=== PATIENT | female | born 1960 | race Caucasian/White ===

== ENCOUNTER 2017-04-16 04:27 | Emergency (ER) | payer SELFPAY ==
[~2017-04-16] VITALS: Ht 175.3 cm; Wt 58.1 kg
--- NOTE | 2017-04-16 04:37 | NUR ---
BB RA FROM HOME; DIZZINESS. PT AOX3 RR EVEN AND UNLABORED. NO SOB NOTED. NAD NOTED. NO NVD AT THIS TIME. PT GOWNED AND PLACED ON MONITOR WAITING FOR MD GOMEZ.
--- NOTE | 2017-04-16 04:40 | NUR ---
DR. CAMERON AT BEDSIDE FOR EVAL.
--- NOTE | 2017-04-16 05:21 | NUR ---
PT TO RADIOLOGY FOR CT.
--- NOTE | 2017-04-16 05:25 | NUR ---
PT RETURNED FROM CT.
[2017-04-16 05:55] LABS: BASOPHILS % (AUTO) 0.2 % (0.0-2.0); EOSINOPHILS # (AUTO) 0.1 /CMM (0.0-0.7); HEMATOCRIT 42 % (33-45); HEMOGLOBIN 13.9 g/dL (11.5-14.8); LYMPHOCYTES # (AUTO) 1.9 /CMM (0.8-4.8); LYMPHOCYTES % (AUTO) 17.1 % (20.0-44.0); MEAN CORPUSCULAR HEMOGLOBIN 30 PG (26.0-33.0); MEAN CORPUSCULAR HGB CONC 33 g/dl (31.0-36.0); MEAN CORPUSCULAR VOLUME 90 fL (82-100); MONOCYTES # (AUTO) 0.5 /CMM (0.1-1.30); NEUTROPHILS # (AUTO) 8.4 /CMM (1.8-8.9); NEUTROPHILS % (AUTO) 76.7 % (43.0-81.0); PLATELET COUNT (AUTO) 222 /CMM (150-450); RDW COEFFICIENT OF VARIATION 14.8 (11.5-15.0); WHITE BLOOD COUNT (AUTO) 10.9 K/uL (4.3-11.0)
[2017-04-16 06:03] LABS: CREATININE 0.7 mg/dL (0.6-1.3); POTASSIUM 3.4 mmol/L (3.5-5.1)
--- NOTE | 2017-04-16 09:07 | NUR ---
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
--- NOTE | 2017-04-16 10:08 | NUR ---
pet leticia pt's son eta 30 minutes
[2017-04-16 10:51] VITALS: BP 115/61
== END 2017-04-16 10:52 | disposition home or self-care (01) ==
LOC: ER 04:31
DX: H81.399 Other peripheral vertigo, unspecified ear (principal); Z88.0 Allergy status to penicillin
CPT/HCPCS: 36415; 70450; 80048; 85025; 96361; 96374; 96375; 99285; A4606; J2060; J2405; J7030; J8597; Z7610

== ENCOUNTER 2018-11-21 12:40 | Emergency (ER) | payer OTHER ==
[~2018-11-21] VITALS: Ht 172.7 cm; Wt 60.8 kg
--- NOTE | 2018-11-21 12:50 | NUR ---
CAME IN FOR COUGH WITH CONGESTION FOR MORE THAN A WEEK, "I FEEL LIKE I CANT BREATH". TO ER BED 9, HOOKED TO MONITOR, CHANGED TO GOWN, PROVIDED W WARM BLANKET, AWAITING MD SCHWARTZ
--- NOTE | 2018-11-21 12:51 | NUR ---
MADI RIVAS AT BEDSIDE
[2018-11-21] MEDS ORDERED: predniSONE 20 MG TABLET ONE (12:58)
[2018-11-21] MEDS ORDERED: predniSONE 20 MG TABLET PO ONE (13:00)
[2018-11-21] MEDS ORDERED: ALBUTEROL FS 2.5 MG/3 ML VIAL.NEB NEB ONE ×2 (13:00→14:00)
[2018-11-21] MEDS ORDERED: IPRATROPIUM NEB FS 0.5 MG/2.5 ML AMPUL.NEB NEB ONE (13:00)
--- NOTE | 2018-11-21 13:00 | NUR ---
RT AT BEDSIDE, STARTED W BREATHING TREATMENT
[2018-11-21] MEDS ORDERED: IPRATROPIUM NEB FS 0.5 MG/2.5 ML AMPUL.NEB ONE (13:02)
[2018-11-21] MEDS ORDERED: ALBUTEROL FS 2.5 MG/3 ML VIAL.NEB ONE ×2 (13:02→13:47)
--- NOTE | 2018-11-21 13:48 | NUR ---
RT AT BEDSIDE, 2ND BREATHING TREATMENT STARTED
--- NOTE | 2018-11-21 14:15 | NUR ---
Patient discharged to home in stable condition. Written and verbal after care instructions given. Patient verbalizes understanding of instruction.
[2018-11-21 14:17] VITALS: BP 129/69
== END 2018-11-21 14:18 | disposition home or self-care (01) ==
LOC: ER 12:41
DX: J20.9 Acute bronchitis, unspecified (principal); R00.0 Tachycardia, unspecified; Z88.0 Allergy status to penicillin
CPT/HCPCS: 71045; 94640 ×2; 99284; J7512

== ENCOUNTER 2019-02-15 19:49 | Inpatient (IN) | payer OTHER ==
[~2019-02-15] VITALS: Ht 175.3 cm; Wt 56.4 kg
--- NOTE | 2019-02-15 20:10 | NUR ---
LYNNETTE FROM HOME. TO ER BED 1. AAOX4. NO RESP DISTRESS, BREATHING EVEN AND UNLABORED. C/O L TEMPORAL HEADACHE AND LUPER EXT AND L LOWER EXT WEAKNESS S/P SYCOPAL EPISODE. PT REPORTS WAKING UP ON THE FLOOR AND ASSUMES SHE HIT HER HEAD. AT BEDSIDE PAT SCHWARTZ
--- NOTE | 2019-02-15 20:18 | NUR ---
CODE STROKE CALLED
[2019-02-15] MEDS ORDERED: CT SWABBABLE VALVE TRANS SET 1 EA INFUS.SET MC ONE (20:21)
[2019-02-15] MEDS ORDERED: IV NS 0.9% 250 ML IV ONE (20:21)
[2019-02-15] MEDS ORDERED: IOHEXOL-350 100 ML VIAL IV ONE (20:21)
--- NOTE | 2019-02-15 20:22 | NUR ---
PT BROUGHT TO CT VIA ACLS PROTOCOL
[2019-02-15 20:25] LABS: BASOPHILS % (AUTO) 0.4 % (0.0-2.0); EOSINOPHILS % (AUTO) 1.5 % (0.0-6.0); HEMATOCRIT 40 % (33-45); HEMOGLOBIN 14.1 g/dL (11.5-14.8); LYMPHOCYTES # (AUTO) 2.9 /CMM (0.8-4.8); LYMPHOCYTES % (AUTO) 41.1 % (20.0-44.0); MEAN CORPUSCULAR HGB CONC 35 g/dl (31.0-36.0); MEAN CORPUSCULAR VOLUME 87 fL (82-100); MONOCYTES # (AUTO) 0.6 /CMM (0.1-1.30); NEUTROPHILS # (AUTO) 3.4 /CMM (1.8-8.9); PLATELET COUNT (AUTO) 335 /CMM (150-450); RED BLOOD CELL COUNT(AUTO) 4.65 MIL/uL (4.0-5.2); WHITE BLOOD COUNT (AUTO) 7.1 K/uL (4.3-11.0)
--- NOTE | 2019-02-15 20:25 | NUR ---
DR. ROBERT ON THE PHONE WITH DR. LION TELE STROKE
[2019-02-15 20:35] LABS: CALCIUM, SERUM 9.2 mg/dL (8.5-10.1); CARBON DIOXIDE 36 mmol/L (21-32); CHLORIDE 97 mmol/L (98-107); CREATININE 0.9 mg/dL (0.6-1.3); GLUCOSE 103 mg/dL (74-106); SODIUM SERUM 138 mmol/L (136-145); UREA NITROGEN, BLOOD 23 mg/dL (7-18)
[2019-02-15 20:47] LABS: ALANINE AMINOTRANSFERASE 25 U/L (12-78); ALBUMIN 3.4 g/dL (3.4-5.0); ALKALINE PHOSPHATASE 80 U/L (46-116); ASPARTATE AMINOTRANSFERASE 28 U/L (15-37); BILIRUBIN,DIRECT 0.1 mg/dL (0.0-0.2); BILIRUBIN,TOTAL 0.3 mg/dL (0.2-1.0); TOTAL PROTEIN, SERUM 7.4 g/dL (6.4-8.2)
--- NOTE | 2019-02-15 20:51 | NUR ---
2019: CODE STROKE ACTIVATED 2021: IV LINE OBTAINED ON R AC 18G. BLOOD DRAWN AND GIVEN TO TECH AT BEDSIDE. 2022: EN ROUTE TO CT ON [place] WITH RN AND ACCOUNTS PAYABLE ACCOUNTANT 2024: CT HEAD W/O CONTRAST 2027: CT W/ CONTRAST 2031: BACK TO UNIT 2033: EKG AT BEDSIDE. 2039: MD AT BEDSIDE
[2019-02-15 21:16] LABS: CHOLESTEROL 161 mg/dL (<200); HDL CHOLESTEROL 71 mg/dL (40-60); LDL 79 mg/dL (0-99); TRIGLYCERIDES 51 mg/dL (30-150)
[2019-02-15] MEDS ORDERED: LIDOCAINE 1% INJ 50 ML MDV IJ ONE (21:29)
--- NOTE | 2019-02-15 21:29 | NUR ---
AT BEDSIDE FOR LUMBAR PUNCTURE
--- NOTE | 2019-02-15 21:46 | NUR ---
[facility] SENT TO LAB
[2019-02-15] MEDS ORDERED: ONDANSETRON HCL/PF 4 MG/2 ML VIAL ONE (21:51)
[2019-02-15] MEDS ORDERED: HYDROMORPHONE 1 MG/1 ML DISP.SYRIN ONE (21:51)
[2019-02-15 21:53] LABS: CSF PROTEIN 33.9 mg/dL (15-45)
[2019-02-15] MEDS ORDERED: HYDROMORPHONE INJ 2 MG/ML DISP.SYRIN IV ONE (22:00)
[2019-02-15] MEDS ORDERED: ONDANSETRON HCL/PF 4 MG/2 ML VIAL IVP ONE (22:00)
--- NOTE | 2019-02-15 22:01 | NUR ---
Urmila lopez in [facility] - 02/15/19 at 2201 by RAFY BED ASSIGNMENT: TELE [phone]
--- NOTE | 2019-02-15 22:01 | NUR ---
BED ASSIGNMENT: [id number] TELE
--- NOTE | 2019-02-15 22:06 | NUR ---
REPORT GIVEN TO KIRA DUONG FOR KADI.
--- NOTE | 2019-02-15 22:55 | NUR ---
TELE/RN NOTES RECEIVED PT. FROM ER VIA [place]. PT. IS AWAKE, ALERT AND ORIENTED X4. BREATHING EVEN AND UNLABORED ON ROOM AIR. NO SOB OR RESPIRATORY DISTRESS NOTED AT THIS TIME. PT. COMPLAINING OF HEADACHE 12/13, WILL ADMINISTER TO PT. PAIN MEDICATION ORDERED. ORIENTED PT. TO ROOM. PLACED EXTERNAL ETCHER ENAMELING ON PT. CURRENT RHYTHM = SINUS RHYTHM HR 76. PT. WITH RIGHT AC 18 GAUGE IV SALINE LOCK PRESENT, PATENT AND INTACT. BED LOCKED AND IN LOWEST POSITION, SIDE RAILS UP X2, CALL LIGHT WITHIN REACH, WILL CONTINUE TO MONITOR.
[2019-02-15 23:00] VITALS: BP 109/73
[2019-02-15] MEDS ORDERED: HYDROCODONE/APAP 5/325MG 1 EACH TABLET PO PRN (23:00)
[2019-02-15] MEDS ORDERED: MAG HYDROX/AL HYDROX/SIMETH 30 ML UDC PO PRN (23:00)
[2019-02-15] MEDS ORDERED: MAGNESIUM HYDROXIDE 30 ML UDC PO PRN (23:00)
[2019-02-15] MEDS ORDERED: ZOLPIDEM TARTRATE 5 MG TABLET PO PRN (23:00)
[2019-02-15] MEDS ORDERED: ACETAMINOPHEN 325 MG TABLET PO PRN (23:00)
[2019-02-15] MEDS ORDERED: ONDANSETRON HCL/PF 4 MG/2 ML VIAL IVP PRN (23:00)
--- NOTE | 2019-02-15 23:10 | NUR ---
PT TRANSPORTED TO UNIT WITH RNA ND EMT AT BEDSIDE W/ ACLS PROTOCOL. NAD NOTED DURING TRANSPORT.
[2019-02-16] MEDS: POTASSIUM CHLORIDE 20 MEQ TAB.PRT.SR PO SCH ×2 (00:30→02:36)
[2019-02-16] MEDS: IV NS 0.9% 1,000 ML IV PRN ×2 (00:30→16:30)
[2019-02-16] MEDS: MORPHINE SULFATE INJ 2 MG/ML DISP.SYRIN IV PRN ×3 (00:31→13:43)
[2019-02-16] MEDS ORDERED: POTASSIUM CHLORIDE 20 MEQ TAB.PRT.SR PO ONE (02:35)
[2019-02-16 04:00] VITALS: BP 111/60
--- NOTE | 2019-02-16 06:27 | NUR ---
TELE/RN NOTES PT. IS LYING IN BED RESTING. BREATHING EVEN AND UNLABORED ON ROOM AIR. NO SOB, RESPIRATORY DISTRESS OR COMPLAINTS OF PAIN NOTED AT THIS TIME. PT. WITH EXTERNAL INSTRUMENTATION DESIGNER PRESENT AND INTACT. PT. CURRENT RHYTHM = SINUS RHYTHM HR 69. PT. WITH RIGHT AC 18 GAUGE PERIPHERAL IV PRESENT, PATENT AND INTACT ADMINISTERING TO PT. NS @ 75 ML/HR. ALL PT. NEEDS MET. BED LOCKED AND IN LOWEST POSITION, SIDE RAILS UP X2, CALL LIGHT WITHIN REACH, WILL ENDORSE TO DAYSHIFT NURSE FOR CONTINUITY OF CARE.
[2019-02-16 06:34] LABS: BASOPHILS % (AUTO) 0.6 % (0.0-2.0); EOSINOPHILS % (AUTO) 2.3 % (0.0-6.0); HEMATOCRIT 40 % (33-45); HEMOGLOBIN 13.7 g/dL (11.5-14.8); LYMPHOCYTES # (AUTO) 3.2 /CMM (0.8-4.8); LYMPHOCYTES % (AUTO) 52.8 % (20.0-44.0); MEAN CORPUSCULAR HGB CONC 34 g/dl (31.0-36.0); MEAN CORPUSCULAR VOLUME 88 fL (82-100); MONOCYTES # (AUTO) 0.6 /CMM (0.1-1.30); MONOCYTES % (AUTO) 9.3 % (2.0-12.0); NEUTROPHILS # (AUTO) 2.1 /CMM (1.8-8.9); PLATELET COUNT (AUTO) 309 /CMM (150-450); RED BLOOD CELL COUNT(AUTO) 4.56 MIL/uL (4.0-5.2)
[2019-02-16 06:53] LABS: ALBUMIN 3.1 g/dL (3.4-5.0); BILIRUBIN,TOTAL 0.3 mg/dL (0.2-1.0); CALCIUM, SERUM 8.8 mg/dL (8.5-10.1); CREATININE 0.9 mg/dL (0.6-1.3); PHOSPHORUS 3.7 mg/dL (2.5-4.9); POTASSIUM 3.3 mmol/L (3.5-5.1); TOTAL PROTEIN, SERUM 6.9 g/dL (6.4-8.2)
[2019-02-16 06:55] LABS: THYROID STIMULATING HORMONE 0.16 uIU/mL (0.358-3.74)
[2019-02-16 08:00] VITALS: BP_SYST 144; BP_SYST 98; BP_DIAS 57; BP_DIAS 59
[2019-02-16] MEDS: PANTOPRAZOLE 40 MG TABLET.DR PO SCH (08:50)
[2019-02-16] MEDS ORDERED: POTASSIUM CHLORIDE 10 MEQ TABLET.SA PO ONE (09:00)
--- NOTE | 2019-02-16 09:00 | NUR ---
TELE/RN NOTES PT. IS IN BED ASLEEP EASILY AROUSABLE DURING CARE.RESPIRATIONS EVEN AND UNLABORED ON ROOM AIR. NO SOB, RESPIRATORY DISTRESS OR COMPLAINTS OF PAIN NOTED AT THIS TIME. PT. WITH EXTERNAL BURR MACHINE OPERATOR PRESENT AND INTACT. PT. WITH RIGHT AC 18 GAUGE PERIPHERAL IV PRESENT, PATENT AND INTACT ADMINISTERING TO PT. NS @ 75 ML/HR. ALL PT. NEEDS MET. BED LOCKED AND IN LOWEST POSITION, SIDE RAILS UP X2, CALL LIGHT WITHIN REACH, WILL CONTINUE TO MONITOR
[2019-02-16] MEDS ORDERED: HYDR-3802 PO (09:02)
[2019-02-16] MEDS ORDERED: PROG200C15 PO (09:02)
[2019-02-16] MEDS ORDERED: FLUO40CA8 PO (09:02)
[2019-02-16 16:00] VITALS: BP 90/62
--- NOTE | 2019-02-16 17:44 | NUR ---
KIRA notes aware no antithrombolytic at this time, no new orders continue to monitor at this time Addendum: 02/16/19 at 1745 by KIET BARRY RN Amended: Links added.
--- NOTE | 2019-02-16 18:34 | NUR ---
MS RN NOTES PT. IS IN BED AWAKE ABLE TO MAKE NEEDS KNOWN.RESPIRATIONS EVEN AND UNLABORED ON ROOM AIR. NO SOB, RESPIRATORY DISTRESS OR COMPLAINTS OF PAIN NOTED AT THIS TIME. PT. WITH RIGHT AC 18 GAUGE PERIPHERAL IV PRESENT, PATENT AND INTACT ADMINISTERING TO PT. NS @ 75 ML/HR. ALL PT. NEEDS MET. BED LOCKED AND IN LOWEST POSITION, SIDE RAILS UP X2, CALL LIGHT WITHIN REACH, WILL CONTINUE TO MONITOR AND ENDORSE TO NEXT SHIFT FOR CONTINUITY OF CARE
--- NOTE | 2019-02-16 19:27 | NUR ---
RN NOTES RECEIVED CALL BACK FROM JAVIER DOOLEY, PT BP TRENDING IN HIGH 80'S AND LOW 90'S SYSTOLIC PER DNP GIVE, NS 500 ML BOLUS MAY REPEAT IN ONE HOUR IF NOT EFFECTIVE, PER DNP GIVE MORHPINE 3MG IV FOR NEXT DOSE WHEN PT FEELING PAIN AND CALL DNP BACK IF EFFECTIVE FOR PAIN TO REEVALUATE Q4H DOSING
[2019-02-16] MEDS ORDERED: IV NS 0.9% 500 ML IV ONE ×2 (19:30→22:03)
[2019-02-16] MEDS ORDERED: MORPHINE SULFATE INJ 2 MG/ML DISP.SYRIN IV ONE (19:30)
--- NOTE | 2019-02-16 19:30 | NUR ---
RN MS OPENING NOTES RECEIVED PATIENT IN BED AWAKE, ALERT AND ORIENTED X3, VERBALLY RESPONSIVE, ABLE TO MAKE NEEDS KNOWN. BREATHING EVEN AND UNLABORED. NO SOB NOTED. TOLERATING ROOM AIR. DENIES ANY PAIN OR DISCOMFORT AT THE MOMENT. NO DIZZINESS. IV ON RIGHT AC INTACT AND PATENT WITH IVF INFUSING. SKIN DRY AND WARM TO TOUCH. ALL OTHER NEEDS ATTENDED TO. SAFETY MEASURES IN PLACE. CALL LIGHT WITHIN REACH. WILL CONTINUE TO MONITOR.
[2019-02-16] MEDS ORDERED: MORPHINE SULFATE INJ 2 MG/ML DISP.SYRIN IV PRN (20:00)
[2019-02-16 20:02] VITALS: BP 96/65
[2019-02-16 21:20] VITALS: BP 94/65
[2019-02-16] MEDS ORDERED: SUMATRIPTAN SUCCINATE 25 MG TABLET PO ONE (21:25)
--- NOTE | 2019-02-16 21:25 | NUR ---
RN MS NOTES INFORMED DR. MCDUFFIE THAT BP IS 94/65 HR 77 AFTER 500CC IV BOLUS OF NS AND THAT PATIENT IS REQUESTING FOR A PAIN MEDICATION DUE TO HEADACHE. INFORMED THAT I WILL INFUSE ANOTHER 500CC IV NS PER HIS ORDER EARLIER. PER DR. MCDUFFIE, HOLD MORPHINE AND GIVE SUMATRIPTAN 50MG PO X1 DOSE TO SEE IF IT WILL WORK. ORDER NOTED AND CARRIED OUT. WILL MONITOR FOR EFFECTIVENESS.
[2019-02-16] MEDS ORDERED: SUMATRIPTAN SUCCINATE 25 MG TABLET ONE (21:47)
--- NOTE | 2019-02-16 23:00 | NUR ---
RN MS NOTES PATIENT SLEEPING COMFORTABLY IN BED. ON IVF. WILL CONTINUE TO MONITOR.
[2019-02-17 05:18] VITALS: BP 126/56
--- NOTE | 2019-02-17 05:21 | NUR ---
RN MS NOTES ASKED PATIENT IF SUMATRIPTAN WORKED. PER PATIENT, "IT MUST HAVE SINCE I SLEPT THROUGHOUT THE NIGHT." ASKED IF SHE'S IN PAIN RIGHT NOW, PER PATIENT, "ONLY A LITTLE, MORE TOLERABLE THAN LAST NIGHT. NO NEED FOR PAIN MEDICATION." INFORMED DR. MCDUFFIE PATIENT'S STATEMENT. WAITING FOR RESPONSE AND FOR ANY FURTHER ORDERS. WILL CONTINUE TO MONITOR.
--- NOTE | 2019-02-17 05:56 | NUR ---
RN MS NOTES PER DR. MCDUFFIE, INFORM DAY MD REGARDING EFFECTIVENESS OF SUMATRIPTAN. WILL ENDORSE TO ONCOMING NURSE. AND FOR NOW, GIVE MORPHINE 3MG IV FOR PATIENT'S HEADACHE. WILL CONTINUE TO MONITOR.
[2019-02-17 06:32] LABS: CALCIUM, SERUM 8.8 mg/dL (8.5-10.1); CREATININE 0.7 mg/dL (0.6-1.3); POTASSIUM 4.3 mmol/L (3.5-5.1)
[2019-02-17 06:34] LABS: BASOPHILS % (AUTO) 0.5 % (0.0-2.0); EOSINOPHILS % (AUTO) 2.5 % (0.0-6.0); HEMATOCRIT 43 % (33-45); HEMOGLOBIN 14.4 g/dL (11.5-14.8); LYMPHOCYTES # (AUTO) 2.8 /CMM (0.8-4.8); LYMPHOCYTES % (AUTO) 44.6 % (20.0-44.0); MEAN CORPUSCULAR HGB CONC 34 g/dl (31.0-36.0); MEAN CORPUSCULAR VOLUME 89 fL (82-100); MONOCYTES # (AUTO) 0.5 /CMM (0.1-1.30); MONOCYTES % (AUTO) 8.2 % (2.0-12.0); NEUTROPHILS # (AUTO) 2.8 /CMM (1.8-8.9); NEUTROPHILS % (AUTO) 44.2 % (43.0-81.0); PLATELET COUNT (AUTO) 314 /CMM (150-450); RED BLOOD CELL COUNT(AUTO) 4.81 MIL/uL (4.0-5.2); WHITE BLOOD COUNT (AUTO) 6.3 K/uL (4.3-11.0)
--- NOTE | 2019-02-17 06:39 | NUR ---
RN MS CLOSING NOTES PATIENT RESTING IN BED. NOT IN ANY DISTRESS. BREATHING EVEN AND UNLABORED. NO SOB NOTED. TOLERATING ROOM AIR. DENIES ANY PAIN OR DISCOMFORT AT THE MOMENT - MORPHINE 3MG IV GIVEN AT 0600. IV ON RIGHT AC INTACT AND PATENT WITH IVF INFUSING. ALL OTHER NEEDS ATTENDED TO. SAFETY MEASURES IN PLACE. CALL LIGHT WITHIN REACH. WILL ENDORSE TO ONCOMING NURSE FOR KADI.
--- NOTE | 2019-02-17 07:45 | NUR ---
MS RN OPENING NOTES RECEIVED PATIENT IN BED ASLEEP, AROUSABLE TO VERBAL AND TACTILE STIMULI. DENIES ANY C/O PAIN NOR DISCOMFORT AT THIS TIME. PER PATIENT SLEPT WELL LAST NIGHT AND FEELS MUCH BETTER TODAY COMPARED TO THE PAST COUPLE OF DAYS. PER ENDORSEMENT, PATIENT RECEIVED SUMATRIPTAN AND PATIENT STATES IT WAS EFFECTIVE. RELAYED TO DR. AGUIAR AND MADE AWARE. DR. AGUIAR SPOKE TO PATIENT AND DISCUSSED OVERALL PLAN OF CARE AND PATIENT IS MEDICALLY STABLE FOR DISCHARGE TODAY. CALL LIGHT WITHIN REACH. RIGHT AC #18 INTACT AND PATENT INFUSING NS @ 75ML/HR.
[2019-02-17 08:00] VITALS: BP 95/64
[2019-02-17] MEDS: PANTOPRAZOLE 40 MG TABLET.DR PO SCH (08:33)
--- NOTE | 2019-02-17 10:11 | NUR ---
MS RN NOTES RECEIVED A CALL FROM PATIENT'S INSURANCE [address] [employer] AND SPOKE TO CLARE, AMAN ROSARIO, SHE WANTED TO VERIFY IF PATIENT IS SCHEDULED FOR DISCHARGE TODAY. INFORMED CLARE THAT A DISCHARGE ORDER HAS BEEN ORDERED BY DR. AGUIAR.
--- NOTE | 2019-02-17 10:52 | NUR ---
MS RN NOTES PATIENT OFF UNIT, LEFT FOR CT SCAN OF CERVICAL SPINE IN STABLE CONDITION.
--- NOTE | 2019-02-17 11:10 | NUR ---
MS RN NOTES PATIENT RETURNED TO UNIT FROM CT SCAN. TRANSFERRED TO BED FROM WHEELCHAIR. PER PATIENT SHE DOESN'T REMEMBER GOING DOWN THE ELEVATOR FOR THE CT AND STATED "I WAS FINE BEFORE THE CT AND I DON'T REMEMBER GOING DOWN THE ELEVATOR. I FEEL THIS PRESSURE ON MY HEAD." V/S TAKEN FOLLOWS,101/68; HR:78; RR:18; SPO2 98% ROOM AIR.; T: 97.8 (ORAL) NO DRIFT NOTED UPON ASSESSMENT, NO CHANGE IN MENTAL STATUS WITH STEADY GAIT OBSERVED DURING TRANSFER. PATIENT IS AWARE OF DATE, MONTH, YEAR, , AND PLACE ([facility]). DURING ASSESSMENT, PATIENT'S CELL PHONE RANG AND PATIENT PICKED IT UP AND WAS CONVERSING WITH SON. MADE PATIENT COMFORTABLE IN BED. HOB ELEVATED. RELAXATION TECHNIQUES DONE. PROVIDED A QUIET ENVIRONMENT. PLACE SUPPLEMENTAL O2 AT 2L/MIN VIA NC. CALL LIGHT WITHIN REACH. RIGHT AC #18 INTACT AND PATENT INFUSING NS @ 75ML/HR.
--- NOTE | 2019-02-17 11:30 | NUR ---
MS RN NOTES RE-ASSESSED PATIENT, PER PATIENT, "I FEEL LESS PRESSURE AND BETTER THAN EARLIER." ACCOMPANIED PATIENT TO THE BATHROOM. OBSERVED PATIENT WITH STEADY GAIT WITHOUT S/S OF DISTRESS.
--- NOTE | 2019-02-17 12:00 | NUR ---
MS RN NOTES OBSERVED PATIENT LAYING COMFORTABLY IN BED, TEXTING ON THE CELL PHONE AND SMILING. IN NO APPARENT DISTRESS.
[2019-02-17] MEDS: IV NS 0.9% 1,000 ML IV PRN (12:21)
[2019-02-17] MEDS ORDERED: PNEUMOCOCCAL 23-VAL P-SAC VAC 0.5 ML VIAL SQ ONE (15:00)
--- NOTE | 2019-02-17 15:59 | NUR ---
MS PROFESSIONAL ARCHITECT/CLOSING NOTES PATIENT DENIES ANY C/O PAIN NOR DISCOMFORT. DENIES ANY C/O TINGLING SENSATION, PRESSURE IN HEAD OR ANY SIGNS AND SYMPTOMS OF DISCOMFORT. PATIENT DRESSED SELF INDEPENDENTLY. STEADY GAIT. DISCHARGE EDUCATION, INSTRUCTIONS AND DISCHARGE PACKET GIVEN TO PATIENT. PATIENT REQUESTED TO RECEIVE PNA VACCINE DUE TO HISTORY OF PNA, ORDER OBTAINED NOTED AND CARRIED OUT. PNA VACCINE 23 GIVEN TO RIGHT ARM TRUMAN WELL. NO C/O PAIN TO INJECTION SITE NOR REDNESS. DISCUSSED S/E OF PNA VACCINE AND INFORMED PATIENT AGAIN THAT EDUCATION IS INSIDE THE DISCHARGE PACKET ALONG WITH INSTRUCTIONS. PER PATIENT, " I SCHEDULED AN APPOINTMENT WITH MY CABLE INSTALLER REPAIRER HELPER ON THURSDAY." ALL BELONGINGS ACCOUNTED FOR. IV ACCESS REMOVED WITH CATHETER TIP IN PLACE AND APPLIED GAUZE DRESSING. PATIENT LEFT VIA WHEELCHAIR IN PRIVATE CAR ACCOMPANIED BY SON. PATIENT LEFT IN STABLE CONDITION.
== END 2019-02-17 15:45 | disposition home or self-care (01) | DRG 103 ==
LOC: ER 19:50 → TELE 22:34 → MED 02-16 10:26
PROVIDERS: ADMIT Nurse Practitioner Acute Care; ATTEND Family Medicine
DX: G43.819 Other migraine, intractable, without status migrainosus (principal); N39.0 Urinary tract infection, site not specified; F32.9 Major depressive disorder, single episode, unspecified; E87.6 Hypokalemia; E03.9 Hypothyroidism, unspecified; R20.2 Paresthesia of skin; Z87.440 Personal history of urinary (tract) infections; J32.0 Chronic maxillary sinusitis; Z88.0 Allergy status to penicillin; R79.89 Other specified abnormal findings of blood chemistry; Z98.890 Other specified postprocedural states; M54.10 Radiculopathy, site unspecified
CPT/HCPCS: 36415; 70450-TC; 70496-TC; 70498-TC; 70551-TC; 71045-TC; 72125-TC; 80048-TC; 80053-TC; 80061-TC; 80076-TC; 82945-TC; 82962-TC; 83735-TC; 84100-TC; 84155-TC; 84443-TC; 84484-TC; 85025-TC; 85652-TC; 85730-TC; 86140-TC; 87070-TC; 87081-TC; 89051-TC; 90732; G0378; J1170; J2270; J2405; J3490; J7030; J7040; J7050; Q9967